=== PATIENT | female | born 1980 | race Caucasian/White ===

== ENCOUNTER 2017-12-18 16:11 | Inpatient (IN) | payer BC ==
[~2017-12-18] VITALS: Ht 157.5 cm; Wt 61.7 kg
[~2017-12-18 16:11] MED LIST: CLC100 PO; FAMO20TA11 PO; FRRS300 PO; MISC-836; MTR600X PO; PRENTAB26 PO; SERT50TA PO
[2017-12-18] MEDS ORDERED: ACETAMINOPHEN 500 MG TAB PO STA (16:35)
[2017-12-18] MEDS ORDERED: SODIUM CHLORIDE 0.9% 1000ML 1,000 ML IV STA (16:35)
--- NOTE | 2017-12-18 16:42 | EMERGENCY ROOM VISIT NOTE ---
History Report prepared by Sugey: Aubree Ortiz Under the Supervision of: Dr. Aurelio Huff M.D. First contact with patient: 16:16 Chief Complaint: FLU LIKE SX Stated Complaint: FLU LIKE SYMPTOMS, JUST DELIVERED 8 DAYS AGO History of Present Illness The patient is a 37 year old white female with a past medical history of vaginal childbirth and D&C for retained placenta 8 days ago who presents to the ED with a cc of constant fever beginning 3 or 4 days ago. She reports she has had a persistent low grade fever of around 100.7F, which is reduced by Tylenol. She also notes difficulty sleeping, headache, low back pain, weakness, and fatigue. The patient notes her last bowel movement was yesterday. She denies any nausea, cough, sore throat, congestion, ear pain. The patient notes this was her third delivery, and she has not felt like this after giving in the past. SHe notes some occasional cramping, and denies any vaginal bleeding. She notes she was seen at the [facility] clinic today, where they called her FACILITY SUPERVISOR who recommended she be seen in the ED for a sonogram and blood work. They noted no concern for breast infections. The patient denies any recent medication changes. Source of History: patient Onset: 3 or 4 days ago Position: head Quality: other (fever) Timing: constant Modifying Factors (Relieving): tylenol Associated Symptoms: + headache, + back pain (low), + fatigue, + weakness, No sorethroat, No cough Note: Associated symptom: difficulty sleeping. Denies: congestion, ear pain Review of Systems See HPI for pertinent positives and negatives. A total of ten systems were reviewed and were otherwise negative. Past Medical & Surgical Medical Problems: (1) fever (2) PROM (premature rupture of membranes) (3) Vaginal delivery Family History No pertinent family history stated. Social History Smoking Status: Never Smoker Smokeless Tobacco Use: No Alcohol Use: occasionally Drug Use: none Marital Status: Housing Status: lives with family Current/Historical Medications Scheduled Ferrous Sulfate (Ferrous Sulfate), 325 MG PO BIDM Multivit/Min/Iron/Fol Ac/Pren ( Vitamin), 1 TAB PO DAILY Sertraline (Zoloft), 1 TAB PO DAILY Scheduled PRN Ibuprofen (Ibuprofen), 600 MG PO Q4H PRN for PAIN, AGUILAR, CRAMPING OR FEVER Durable Medical Equipment Misc. Devices (Breast Pump), EA Allergies Coded Allergies: No Known Allergies (Unverified , 02/07/15) Physical Exam Vital Signs Date Time Temp Pulse Resp B/P (MAP) Pulse Ox O2 Delivery O2 Flow Rate FiO2 12/18/17 18:45 74 129/72 96 Room Air 12/18/17 17:34 68 12/18/17 17:24 99 Room Air 12/18/17 17:24 70 17 132/45 99 Room Air 12/18/17 16:13 36.8 83 17 127/88 98 Room Air Physical Exam GENERAL: Awake, alert, well-appearing, NAD HENT: Normocephalic, atraumatic. EYES: Normal conjunctiva. Sclera non-icteric. PERRL. No anisocoria. NECK: Supple. No nuchal rigidity. FROM. RESPIRATORY: CTAB, no rhonchi, wheezing, crackles CARDIAC: RRR, no MRG ABDOMEN: Soft, NTND, BS+. Negative obturators, negative psoas. MSK: No chest wall TTP, no LE edema. no CVA TTP. NEURO: GCS 15, CN 2-12 intact, moves all 4s on command SKIN: No rash or jaundice noted. Medical Decision & Procedures ER Provider Diagnostic Interpretation: Radiology results as stated below per my review and radiologist interpretation: PELVIC COMPLETE NON OB CLINICAL HISTORY: r/o retained POC, had D C but persistent fever COMPARISON STUDY: None FINDINGS: The uterus measured 13.1 cm. Unremarkable on a post delivery bases.. The endometrial stripe measured 2 cm. Increased vascular flow with heterogeneity.. The right ovary measured not seen. The left ovary measured not seen. There is no ultrasonographic evidence of ovarian torsion. It should be noted that ovarian torsion can be present with normal Doppler ultrasonographic findings. There was no evidence of pathologic free pelvic fluid. IMPRESSION: 1. Enlarged uterus given the patient's postgravid state. 2. Endometrial thickening and hypervascularity at 2 cm. Possibility of hyperplastic change versus endometrial hematoma is considered. 3. No well-defined retained products of conception. The above report was generated using voice recognition software. It may contain grammatical, syntax or spelling errors. Electronically signed by: Ted Wolfe M.D. 12/18/2017 6:28 PM Dictated Date/Time: 12/18/2017 6:26 PM CHEST ONE VIEW PORTABLE CLINICAL HISTORY: Evaluate Fever/Sepsis sepsis COMPARISON STUDY: No previous studies for comparison. FINDINGS: The bones soft tissues and hemidiaphragms are normal. The cardiomediastinal silhouette is normal. The lungs are clear. The pulmonary vasculature is normal. IMPRESSION: Negative chest. The above report was generated using voice recognition software. It may contain grammatical, syntax or spelling errors. Electronically signed by: Ted Wolfe M.D. 12/18/2017 4:51 PM Dictated Date/Time: 12/18/2017 4:51 PM Laboratory Results Test 12/18/17 16:37 12/18/17 16:47 Urine Color YELLOW Urine Appearance CLEAR (CLEAR) Urine pH 6.5 (4.5-7.5) Urine Specific [place] 1.010 (1.000-1.030) Urine Protein NEG (NEG) Urine Glucose (UA) NEG (NEG) Urine Ketones NEG (NEG) Urine Occult Blood NEG (NEG) Urine Nitrite NEG (NEG) Urine Bilirubin NEG (NEG) Urine Urobilinogen NEG (NEG) Urine Leukocyte Esterase MODERATE (NEG) Urine WBC (Auto) 5-10 /hpf (0-5) Urine RBC (Auto) 0-4 /hpf (0-4) Urine Hyaline Casts (Auto) 1-5 /lpf (0-5) Urine Epithelial Cells (Auto) 20-30 /lpf (0-5) Urine Bacteria (Auto) NEG (NEG) Direct Bilirubin < 0.1 mg/dl (0-0.2) Laboratory results reviewed by me Medications Administered Medications (Trade) Dose Ordered Sig/Nereida Route Start Time Stop Time Status Last Admin Dose Admin Acetaminophen (Tylenol Tab) 1,000 mg NOW STAT PO 12/18/17 16:35 12/18/17 16:38 DC 12/18/17 17:18 1,000 MG Sodium Chloride 1,000 ml @ 999 mls/hr Q1H1M STAT IV 12/18/17 16:35 12/18/17 17:35 DC 12/18/17 17:19 999 MLS/HR Acetaminophen (Tylenol Tab) 650 mg Q4H PRN PO 12/18/17 19:15 01/17/18 19:14 12/19/17 07:55 650 MG ED Course 1619: The patient was evaluated in room A11B. A complete history and physical exam was performed. 1839: I discussed the case with Dr. Goodman, FACILITY SUPERVISOR. She will evaluate the patient. 1912: I reviewed the case again Dr. Goodman, FACILITY SUPERVISOR. The patient will be evaluated for further treatment and disposition. 1915: I reevaluated the patient. Discussed results: she verbalized agreement with the treatment plan. the patient will be evaluated for further management. Medical Decision Nursing notes reviewed. Ancillary studies and prior records reviewed. The patient is a 37 year old white female with a past medical history of vaginal childbirth and D&C for retained placenta 8 days ago who presents to the ED with a cc of constant fever beginning 3 or 4 days ago. Etiologies such as viral syndrome, otitis, pharyngitis, pneumonia, influenza, meningitis, urinary tract infection, sepsis, bacteremia, as well as others were entertained. Patient was seen and evaluated the patient side. Patient does complain of just not feeling well. Patient has denied any vaginal bleeding or discharge. The patient has had a low-grade fever of 100.6. Patient denies any infectious symptoms, cough fever chills, upper respiratory symptoms, nausea vomiting or diarrhea. Patient also denies any abdominal cramping. Patient did have blood work completed along with urinalysis, chest x-ray and blood cultures. Patient was given fluids. Patient does have mild white count. The patient does have some anemia which is somewhat chronic. It is down 1 point compared to prior. Patient's chest x-ray is clear. Urinalysis does not appear infected. I did speak with the on-call FACILITY SUPERVISOR physician came to evaluate the patient. She states that the patient then confided in the patient that she has had some foul-smelling discharge. This was confirmed based on her pelvic exam. Patient was admitted to the FACILITY SUPERVISOR service for further evaluation , treatment, and IV antibiotics. Most likely endometritis. Medication Reconcilliation Current Medication List: was personally reviewed by me Blood Pressure Screening Patient's blood pressure: Normal blood pressure Blood pressure disposition: Did not require urgent referral Consults Time Called: 1832 Consulting Physician: Dr. Goodman FACILITY SUPERVISOR Returned Call: 1839 1839: I discussed the case with Dr. Goodman, FACILITY SUPERVISOR. She will evaluate the patient. 1913: I reviewed the case again Dr. Goodman, FACILITY SUPERVISOR. The patient will be evaluated for further treatment and disposition. Impression Primary Impression: Endometritis Additional Impression: Anemia Scribe Attestation The scribe's documentation has been prepared under my direction and personally reviewed by me in its entirety. I confirm that the note above accurately reflects all work, treatment, procedures, and medical decision making performed by me. Departure Information Dispostion Being Evaluated By Surgeon Antoni Tadeo M.D. (PCP) Patient Instructions My [facility] Problem Qualifiers Additional Impression: Anemia Anemia type: unspecified type Qualified Codes: D64.9 - Anemia, unspecified
--- NOTE | 2017-12-18 16:52 | DIAGNOSTIC IMAGING REPORT ---
CHEST ONE VIEW PORTABLE CLINICAL HISTORY: Evaluate Fever/Sepsis sepsis COMPARISON STUDY: No previous studies for comparison. FINDINGS: The bones soft tissues and hemidiaphragms are normal. The cardiomediastinal silhouette is normal. The lungs are clear. The pulmonary vasculature is normal. IMPRESSION: Negative chest. The above report was generated using voice recognition software. It may contain grammatical, syntax or spelling errors. Electronically signed by: Ted Wolfe M.D. 12/18/2017 4:51 PM Dictated Date/Time: 12/18/2017 4:51 PM
[2017-12-18 17:17] LABS: HEMATOCRIT 25.8 % (37-47); HEMOGLOBIN 8.6 g/dL (12.0-16.0); MEAN CELL VOLUME 93.1 fL (80-100); MEAN CORPUSCULAR HGB CONC 33.3 g/dl (32-36); MEAN PLATELET VOLUME 8.6 fL (7.4-10.4); PLATELET COUNT 290 K/uL (130-400); RED CELL DISTRIBUTION WIDTH CV 13.6 % (11.5-14.5); RED CELL DISTRIBUTION WIDTH SD 46.8 fL (36.4-46.3); WHITE BLOOD COUNT 11.85 K/uL (4.8-10.8)
[2017-12-18 17:39] LABS: ALBUMIN 2.9 gm/dl (3.4-5.0); ALKALINE PHOSPHATASE 76 U/L (45-117); ALT/SGPT 13 U/L (12-78); AST/SGOT 11 U/L (15-37); BLOOD UREA NITROGEN 11 mg/dl (7-18); CALCIUM 8.1 mg/dl (8.5-10.1); CARBON DIOXIDE 25 mmol/L (21-32); CREATININE 0.73 mg/dl (0.60-1.20); GLUCOSE 79 mg/dl (70-99); POTASSIUM 3.5 mmol/L (3.5-5.1); SODIUM 139 mmol/L (136-145); TOTAL PROTEIN 6.6 gm/dl (6.4-8.2)
[2017-12-18 18:03] LABS: BASO % 0.3 %; BASO ABS # 0.03 K/uL (0-0.2); EOS % 0.7 %; EOS ABS # 0.08 K/uL (0-0.5); IG# 0.08 K/uL (0.00-0.02); LYMPH ABS # 1.78 K/uL (1.2-3.4); MONO % 7.8 %; MONO ABS # 0.93 K/uL (0.11-0.59); NEUT % 75.5 %; NEUT ABS # 8.95 K/uL (1.4-6.5)
--- NOTE | 2017-12-18 18:29 | DIAGNOSTIC IMAGING REPORT ---
PELVIC COMPLETE NON OB CLINICAL HISTORY: r/o retained POC, had D C but persistent fever COMPARISON STUDY: None FINDINGS: The uterus measured 13.1 cm. Unremarkable on a post delivery bases.. The endometrial stripe measured 2 cm. Increased vascular flow with heterogeneity.. The right ovary measured not seen. The left ovary measured not seen. There is no ultrasonographic evidence of ovarian torsion. It should be noted that ovarian torsion can be present with normal Doppler ultrasonographic findings. There was no evidence of pathologic free pelvic fluid. IMPRESSION: 1. Enlarged uterus given the patient's postgravid state. 2. Endometrial thickening and hypervascularity at 2 cm. Possibility of hyperplastic change versus endometrial hematoma is considered. 3. No well-defined retained products of conception. The above report was generated using voice recognition software. It may contain grammatical, syntax or spelling errors. Electronically signed by: Ted Wolfe M.D. 12/18/2017 6:28 PM Dictated Date/Time: 12/18/2017 6:26 PM
[2017-12-18] MEDS ORDERED: LOPERAMIDE HCL 2 MG CAP PO PRN (19:15)
[2017-12-18] MEDS ORDERED: POLYETHYLENE (MIRALAX) 17 GM PACK PO PRN (19:15)
[2017-12-18] MEDS ORDERED: MAGNESIUM HYDROXIDE SUSP 30 ML UDC PO PRN (19:15)
[2017-12-18] MEDS ORDERED: GENTAMICIN CONSULT ACTIVE PRN (19:15)
--- NOTE | 2017-12-18 20:19 | HISTORY & PHYSICAL EXAMINATION ---
DATE OF ADMISSION: 12/18/2017 CHIEF COMPLAINT: fever and foul smelling discharge. HISTORY OF PRESENT ILLNESS: The patient is a 37-year-old G3-P3-0-0-3 who is status post spontaneous vaginal delivery on 12/10/2017, which was complicated by hemorrhage, retained placenta which required D&C under ultrasound guidance on the same day. She recovered well and discharged home on day #2 on 12/12/2017. She was doing well for 2 days and then she started to have low grade fevers on 12/14/2017. Her temperature has been between 100.5-100.6 at home. She called the office and recommended to watch for it and use Tylenol and/or Motrin. Yesterday, her temperature was 100.2 after she came from an outside pool, where she took her 3 and 5-year-old kids and it was hot outside. Then she felt well later last night until today. She was having chills/ shakes and took her temperature again and it was again 102.0 and she called her primary care. She took 600 mg of Motrin after that reading. She went to see Dr. Tao at [facility] office. Her temperature was 100.6 [address] office and Dr. Tao to call me and I recommended to come into the ER for evaluation. Upon coming to the ER, she was given 1000 mg of Tylenol and her temperature was 36.8 Celsius. She also complains of flu-like symptoms like achiness in her body, abdomen, and legs and breast tenderness. She denies runny or stuffy nose, cough, sore throat either. She started to notice foul-smelling yellow discharge today. She did not have that before. She had minimal vaginal bleeding until today. She feels tired overall and has been waking up with night sweats as well. She denies nausea, vomiting, or problem with urination or bowel movements. She has been tolerating regular diet with a normal appetite. She feels anxious about this and she states she needs to feel well to take of 3 young kids. PAST MEDICAL HISTORY: She denies any medical problems. She has a history depression. She is on Zoloft. PAST SURGICAL HISTORY: None. MEDICATIONS: vitamins, iron sulfate, and Zoloft 50 mg daily, 600 mg of ibuprofen and Tylenol as needed for pain or fever. ALLERGIES: No known drug allergies. SOCIAL HISTORY: The patient denies smoking, alcohol or drug use. She is a teacher. She lives with her and her kids. GYNECOLOGIC HISTORY: The patient has history of full-term spontaneous vaginal deliveries 5 years and 3 years ago and the last one was 8 days ago as above. PHYSICAL EXAMINATION: GENERAL: The patient is alert, oriented x3, not in acute distress. She looks tired and pale. VITAL SIGNS: Her blood pressure is 129/72, temperature is 36.8. CARDIOVASCULAR SYSTEM: S1, S2, RRR. LUNGS: Clear to auscultation bilaterally. ABDOMEN: Soft, nontender, nondistended. Bowel sounds present. PELVIC: Her perineum is covered with yellow foul smelling discharge. Odor disseminated through the room. Speculum exam shows well healing labial repair and similar yellow foul-smelling discharge in the upper vagina and no bleeding from cervical os. Cultures were obtained . Bimanual exam shows an enlarged uterus, nonpalpable adnexa. Blood work: Her white count is 11.850. H and H is 8.6/25.8, platelets 219. Chemistry including liver enzymes, electrolytes are normal. Urine has leukocyte esterase positive and white blood cell positive and urine blood culture is pending. Chest x-ray showed normal results and a pelvic ultrasound showed enlarged uterus at 13 cm. Endometrial stripe 2 cm, possibly hyperplastic changes versus endometrial blood hematoma. No well-defined retained products of conception. ASSESSMENT AND PLAN: The patient is a 37-year-old G3-P3-0-0-3 status post spontaneous vaginal delivery, curettage for retained placenta day #8, fever for the last 4 days. No other identifiable etiology was found. Most likely, endometritis given the history of dilation and curettage as well as foul-smelling discharge. Discussed the findings and recommended admission for IV antibiotics for 48 hours. The patient understands and agrees with the plan. Plan: Admit her to gynecology service, start on IV ampicillin, clindamycin, gentamicin for 48 hours and then discharged with oral antibiotic. Start iron, stool softeners, and sertraline. All questions were answered. RANDI
[2017-12-18] MEDS: GENTAMICIN INJ 280 MG in DEXTROSE 5% 100ML 100 ML IV SCH (21:01)
[2017-12-18] MEDS: ACETAMINOPHEN 325 MG TAB PO PRN (21:11)
[2017-12-18 22:05] VITALS: BP 109/62; PULSE 81; TEMP 36.8; O2SAT 97; Ht 157.5 cm; Wt 61.7 kg
[2017-12-18] MEDS: LACTATED RINGER'S 1000ML 1,000 ML IV SCH (23:04)
[2017-12-18] MEDS: CLINDAMYCIN IV 600 MG in DEXTROSE 5% 50ML 50 ML IV SCH (23:05)
[2017-12-18] MEDS: FERROUS SULFATE 325 MG TAB PO SCH (23:15)
[2017-12-18] MEDS: SERTRALINE HCL 50 MG TAB PO SCH (23:28)
[2017-12-19] VITALS (10 sets, daily range): BP systolic 108–160; BP diastolic 72–95; PULSE 61–79; TEMP 36.3–37; O2SAT 97–99
[2017-12-19] MEDS: AMPICILLIN IV 1 GM in SODIUM CHLOR 0.9% AD-VAN 50ML 50 ML IV SCH ×5 (00:22→23:56)
[2017-12-19] MEDS ORDERED: NURSING VERBAL MED ORDER ONE ×2 (00:45)
[2017-12-19] MEDS: IBUPROFEN 600 MG TAB PO PRN ×2 (00:48→16:42)
[2017-12-19 06:06] LABS: BASO % 0.3 %; BASO ABS # 0.03 K/uL (0-0.2); HEMATOCRIT 25.4 % (37-47); HEMOGLOBIN 8.3 g/dL (12.0-16.0); IG# 0.08 K/uL (0.00-0.02); LYMPH % 19.8 %; LYMPH ABS # 1.97 K/uL (1.2-3.4); MEAN CORPUSCULAR HEMOGLOBIN 30.4 pg (25-34); MEAN CORPUSCULAR HGB CONC 32.7 g/dl (32-36); MEAN PLATELET VOLUME 8.7 fL (7.4-10.4); MONO % 8.1 %; MONO ABS # 0.81 K/uL (0.11-0.59); NEUT ABS # 6.96 K/uL (1.4-6.5); PLATELET COUNT 256 K/uL (130-400); RED CELL DISTRIBUTION WIDTH SD 47.1 fL (36.4-46.3); WHITE BLOOD COUNT 9.95 K/uL (4.8-10.8)
--- NOTE | 2017-12-19 06:36 | OB/GYN Progress Note ---
[employer] Progress Note Date of Service: Dec 19, 2017. Patient is seen and examined She feels much better, no more fever or chills No VB/ D/C No abdominal pain Breast feeding her baby Date Time Temp Pulse Resp B/P (MAP) Pulse Ox O2 Delivery O2 Flow Rate FiO2 12/19/17 04:35 36.6 71 18 117/74 (88) 97 Room Air 12/19/17 00:10 36.7 78 18 108/72 (84) 97 Room Air 12/18/17 22:05 36.8 81 20 109/62 (78) 97 Room Air 12/18/17 22:05 36.8 81 20 109/62 97 Room Air 12/18/17 22:05 97 Room Air 12/18/17 22:00 84 111/72 97 12/18/17 21:05 84 111/72 97 Room Air 12/18/17 18:45 74 129/72 96 Room Air 12/18/17 17:34 68 12/18/17 17:24 99 Room Air 12/18/17 17:24 70 17 132/45 99 Room Air 12/18/17 16:13 36.8 83 17 127/88 98 Room Air Last 24 Hours Test 12/18/17 16:37 12/18/17 16:47 12/19/17 05:43 Urine Color YELLOW Urine Appearance CLEAR Urine pH 6.5 Urine Specific [place] 1.010 Urine Protein NEG Urine Glucose (UA) NEG Urine Ketones NEG Urine Occult Blood NEG Urine Nitrite NEG Urine Bilirubin NEG Urine Urobilinogen NEG Urine Leukocyte Esterase MODERATE Urine WBC (Auto) 5-10 /hpf Urine RBC (Auto) 0-4 /hpf Urine Hyaline Casts (Auto) 1-5 /lpf Urine Epithelial Cells (Auto) 20-30 /lpf Urine Bacteria (Auto) NEG White Blood Count 11.85 K/uL 9.95 K/uL Red Blood Count 2.77 M/uL 2.73 M/uL Hemoglobin 8.6 g/dL 8.3 g/dL Hematocrit 25.8 % 25.4 % Mean Corpuscular Volume 93.1 fL 93.0 fL Mean Corpuscular Hemoglobin 31.0 pg 30.4 pg Mean Corpuscular Hemoglobin Concent 33.3 g/dl 32.7 g/dl Platelet Count 290 K/uL 256 K/uL Mean Platelet Volume 8.6 fL 8.7 fL Neutrophils (%) (Auto) 75.5 % 70.0 % Lymphocytes (%) (Auto) 15.0 % 19.8 % Monocytes (%) (Auto) 7.8 % 8.1 % Eosinophils (%) (Auto) 0.7 % 1.0 % Basophils (%) (Auto) 0.3 % 0.3 % Neutrophils # (Auto) 8.95 K/uL 6.96 K/uL Lymphocytes # (Auto) 1.78 K/uL 1.97 K/uL Monocytes # (Auto) 0.93 K/uL 0.81 K/uL Eosinophils # (Auto) 0.08 K/uL 0.10 K/uL Basophils # (Auto) 0.03 K/uL 0.03 K/uL RDW Standard Deviation 46.8 fL 47.1 fL RDW Coefficient of Variation 13.6 % 14.0 % Immature Granulocyte % (Auto) 0.7 % 0.8 % Immature Granulocyte # (Auto) 0.08 K/uL 0.08 K/uL Red Blood Cell Morphology Unremarkable Sodium Level 139 mmol/L Potassium Level 3.5 mmol/L Chloride Level 106 mmol/L Carbon Dioxide Level 25 mmol/L Anion Gap 8.0 mmol/L Blood Urea Nitrogen 11 mg/dl Creatinine 0.73 mg/dl Est Creatinine Clear Calc Drug Dose 93.0 ml/min Estimated GFR () 123.7 Estimated GFR (Non- 106.7 BUN/Creatinine Ratio 14.7 Random Glucose 79 mg/dl Calcium Level 8.1 mg/dl Total Bilirubin 0.2 mg/dl Direct Bilirubin < 0.1 mg/dl Aspartate Amino Transf (AST/SGOT) 11 U/L Alanine Aminotransferase (ALT/SGPT) 13 U/L Alkaline Phosphatase 76 U/L Total Protein 6.6 gm/dl Albumin 2.9 gm/dl Abd: soft, NT Perineum dry, no bleeding nor d/c AP: 37 yo female s/p , pp curettage for retained placenta on 12/10, admitted for postparetum endometritis last night, on triple AB, Amp, Gent, clindamycin VSS Afebrile doing well Continue to monitor Anticipate d/c tomorrow
[2017-12-19 06:41] LABS: ALBUMIN 2.3 gm/dl (3.4-5.0); CALCIUM 7.6 mg/dl (8.5-10.1); CREATININE 0.62 mg/dl (0.60-1.20); POTASSIUM 3.6 mmol/L (3.5-5.1); TOTAL PROTEIN 5.5 gm/dl (6.4-8.2)
[2017-12-19] MEDS: CLINDAMYCIN IV 600 MG in DEXTROSE 5% 50ML 50 ML IV SCH ×3 (06:45→23:17)
[2017-12-19] MEDS: ACETAMINOPHEN 325 MG TAB PO PRN (07:55)
[2017-12-19] MEDS: FERROUS SULFATE 325 MG TAB PO SCH ×2 (07:55→17:34)
[2017-12-19] MEDS: DOCUSATE SODIUM 100 MG CAP PO SCH ×3 (07:55→20:00)
[2017-12-19] MEDS: PRENATAL VITAMIN TAB PO SCH (07:55)
[2017-12-19] MEDS: LACTATED RINGER'S 1000ML 1,000 ML IV SCH (11:36)
[2017-12-19] MEDS: GENTAMICIN INJ 280 MG in DEXTROSE 5% 100ML 100 ML IV SCH (19:58)
[2017-12-19] MEDS: SERTRALINE HCL 50 MG TAB PO SCH (19:58)
[2017-12-20] MEDS: LACTATED RINGER'S 1000ML 1,000 ML IV SCH ×2 (00:28→07:58)
[2017-12-20 05:17] LABS: BASO % 0.5 %; BASO ABS # 0.04 K/uL (0-0.2); EOS % 1.5 %; EOS ABS # 0.13 K/uL (0-0.5); HEMATOCRIT 26.7 % (37-47); HEMOGLOBIN 8.9 g/dL (12.0-16.0); IG# 0.11 K/uL (0.00-0.02); LYMPH % 20.5 %; LYMPH ABS # 1.75 K/uL (1.2-3.4); MEAN CELL VOLUME 92.4 fL (80-100); MEAN CORPUSCULAR HEMOGLOBIN 30.8 pg (25-34); MEAN CORPUSCULAR HGB CONC 33.3 g/dl (32-36); MEAN PLATELET VOLUME 8.6 fL (7.4-10.4); MONO % 7.7 %; MONO ABS # 0.66 K/uL (0.11-0.59); NEUT % 68.5 %; NEUT ABS # 5.85 K/uL (1.4-6.5); PLATELET COUNT 265 K/uL (130-400); RED CELL DISTRIBUTION WIDTH CV 13.6 % (11.5-14.5); RED CELL DISTRIBUTION WIDTH SD 45.6 fL (36.4-46.3); WHITE BLOOD COUNT 8.54 K/uL (4.8-10.8)
[2017-12-20] MEDS: AMPICILLIN IV 1 GM in SODIUM CHLOR 0.9% AD-VAN 50ML 50 ML IV SCH ×3 (05:58→17:36)
[2017-12-20] MEDS: CLINDAMYCIN IV 600 MG in DEXTROSE 5% 50ML 50 ML IV SCH ×2 (06:49→14:21)
[2017-12-20 07:50] VITALS: BP 145/88; PULSE 73; TEMP 36.8; O2SAT 98
[2017-12-20] MEDS: IBUPROFEN 600 MG TAB PO PRN (07:59)
[2017-12-20] MEDS: FERROUS SULFATE 325 MG TAB PO SCH ×2 (08:02→17:35)
[2017-12-20] MEDS: DOCUSATE SODIUM 100 MG CAP PO SCH (08:02)
[2017-12-20] MEDS: PRENATAL VITAMIN TAB PO SCH (08:02)
[2017-12-20 11:36] VITALS: BP 132/90; PULSE 67; TEMP 36.5; O2SAT 98
--- NOTE | 2017-12-20 11:55 | OB/GYN Progress Note ---
HEALTH MANAGEMENT CONSULTANT Progress Note Date of Service: Dec 20, 2017. Patient is seen and examined She feels much better, no more fever or chills No VB/ D/C No abdominal pain Breast feeding her baby Date Time Temp Pulse Resp B/P (MAP) Pulse Ox O2 Delivery O2 Flow Rate FiO2 12/20/17 11:36 36.5 67 18 132/90 (104) 98 Room Air 12/20/17 07:50 36.8 73 18 145/88 (107) 98 Room Air 12/20/17 07:50 98 Room Air 12/19/17 23:55 36.3 61 16 147/92 (110) 12/19/17 23:55 Room Air 12/19/17 21:45 36.8 70 16 148/95 (112) 12/19/17 19:40 37.0 73 16 142/88 (106) 99 Room Air 12/19/17 19:40 Room Air 12/19/17 17:30 71 18 147/88 (107) 12/19/17 16:00 70 160/93 (115) Room Air 12/19/17 15:20 37.0 79 18 145/90 (108) 98 Room Air 12/19/17 15:20 98 Room Air Test 12/10/17 15:00 12/18/17 16:37 12/18/17 16:47 12/19/17 05:43 Prothrombin Time 10.1 Prothrombin Time INR 1.0 PTT 27.3 Partial Thromboplastin Ratio 1.1 Urine Color YELLOW Urine Appearance CLEAR Urine pH 6.5 Urine Specific [place] 1.010 Urine Protein NEG Urine Glucose (UA) NEG Urine Ketones NEG Urine Occult Blood NEG Urine Nitrite NEG Urine Bilirubin NEG Urine Urobilinogen NEG Urine Leukocyte Esterase MODERATE H Urine WBC (Auto) 5-10 H Urine RBC (Auto) 0-4 Urine Hyaline Casts (Auto) 1-5 Urine Epithelial Cells (Auto) 20-30 H Urine Bacteria (Auto) NEG White Blood Count 11.85 H 9.95 Red Blood Count 2.77 L 2.73 L Hemoglobin 8.6 L 8.3 L Hematocrit 25.8 L 25.4 L Mean Corpuscular Volume 93.1 93.0 Mean Corpuscular Hemoglobin 31.0 30.4 Mean Corpuscular Hemoglobin Concent 33.3 32.7 Platelet Count 290 256 Mean Platelet Volume 8.6 8.7 Neutrophils (%) (Auto) 75.5 70.0 Lymphocytes (%) (Auto) 15.0 19.8 Monocytes (%) (Auto) 7.8 8.1 Eosinophils (%) (Auto) 0.7 1.0 Basophils (%) (Auto) 0.3 0.3 Neutrophils # (Auto) 8.95 H 6.96 H Lymphocytes # (Auto) 1.78 1.97 Monocytes # (Auto) 0.93 H 0.81 H Eosinophils # (Auto) 0.08 0.10 Basophils # (Auto) 0.03 0.03 RDW Standard Deviation 46.8 H 47.1 H RDW Coefficient of Variation 13.6 14.0 Immature Granulocyte % (Auto) 0.7 0.8 Immature Granulocyte # (Auto) 0.08 H 0.08 H Red Blood Cell Morphology Unremarkable Unremarkable Sodium Level 139 141 Potassium Level 3.5 3.6 Chloride Level 106 110 H Carbon Dioxide Level 25 22 Anion Gap 8.0 9.0 Blood Urea Nitrogen 11 9 Creatinine 0.73 0.62 Est Creatinine Clear Calc Drug Dose 93.0 109.5 Estimated GFR () 123.7 135.4 Estimated GFR (Non- 106.7 116.8 BUN/Creatinine Ratio 14.7 14.7 Random Glucose 79 84 Calcium Level 8.1 L 7.6 L Total Bilirubin 0.2 0.2 Direct Bilirubin < 0.1 Aspartate Amino Transferase (AST) 11 L 7 L Alanine Aminotransferase (ALT) 13 11 L Alkaline Phosphatase 76 67 Total Protein 6.6 5.5 L Albumin 2.9 L 2.3 L Globulin 3.2 Albumin/Globulin Ratio 0.7 L Test 12/20/17 05:03 White Blood Count 8.54 Red Blood Count 2.89 L Hemoglobin 8.9 L Hematocrit 26.7 L Mean Corpuscular Volume 92.4 Mean Corpuscular Hemoglobin 30.8 Mean Corpuscular Hemoglobin Concent 33.3 Platelet Count 265 Mean Platelet Volume 8.6 Neutrophils (%) (Auto) 68.5 Lymphocytes (%) (Auto) 20.5 Monocytes (%) (Auto) 7.7 Eosinophils (%) (Auto) 1.5 Basophils (%) (Auto) 0.5 Neutrophils # (Auto) 5.85 Lymphocytes # (Auto) 1.75 Monocytes # (Auto) 0.66 H Eosinophils # (Auto) 0.13 Basophils # (Auto) 0.04 RDW Standard Deviation 45.6 RDW Coefficient of Variation 13.6 Immature Granulocyte % (Auto) 1.3 Immature Granulocyte # (Auto) 0.11 H Red Blood Cell Morphology Unremarkable PE: She is alert oriented, NAD Abd: soft, NT, ND No lochia, no VB no d/c, no odor AP: 37 yo s/p , curettage for retained placenta on 12/10, admitted for endometritis on 12/18 VSS Afebrile doing well Will complete 48 hours of IV AB today and d/c after dinner All questions were answered f/u in a week
[2017-12-20] MEDS ORDERED: CLC/300 PO (11:59)
[2017-12-20] MEDS ORDERED: CLC100 PO (11:59)
[2017-12-20] MEDS ORDERED: AMOX875T PO (11:59)
--- NOTE | 2017-12-20 12:00 | Discharge Instructions ---
Discharge Instructions Date of Service Dec 20, 2017. Admission Reason for Admission: Fever Discharge Discharge Diagnosis / Problem: endometritis Discharge Goals Goal(s): Continuing [employer] care Medications Continue Dispensed Medications: lansinoh Activity Recommendations Activity Limitations: as noted below ACTIVITY RECOMMENDATIONS: * Gradual return to full activity over the next 2-3 weeks. * No lifting - nothing heavier than baby over the next 2-3 weeks. * Do not engage in vigorous exercise, sexual activity or sports until cleared by your physician. * Do not drive or operate any motorized equipment until cleared by your physician. * You may shower/bathe daily. BREAST CARE: If you are not breast feeding: * Wear a supportive bra 24 hours a day for one to two weeks. * Avoid stimulating your breasts and nipples as much as possible during the first few weeks after delivery. * When taking a shower, have the warm water hit your back, not breasts. * When your breasts feel full, apply ice packs. Usually three to four times a day helps ease the discomfort. * Take a mild pain medication (Tylenol/Motrin) when you are uncomfortable. If breast feeding: * Use breast milk to lubricate nipples. Lansinoh cream may be used for sore nipples. You do not need to remove cream prior to breast feeding. If using a different brand of cream, check the label for directions regarding removal of cream prior to nursing. * Wear a supportive bra. * If having problems with breasts or breast feeding, call a [employer] consultant or your health care provider. EPISIOTOMY CARE: After delivery, if you have an episiotomy (stitches), the following steps will ease discomfort and aid healing. * For the first 24 hours after delivery, place ice packs next to your episiotomy to help reduce swelling. * After the first 24 hour-period, sitz baths, either portable or in the tub, are suggested. A shower with a shower arm sprayed over the episiotomy may be comforting. * Kell care should be done after each voiding and bowel movement. Squirt warm water from a plastic bottle over the perineum (region of the body between the anus and urinary opening) and pat dry. * Use Dermoplast to ease discomfort. Shake container. [place] directly over the episiotomy. * Place a Tucks on a clean sanitary pad next to your episiotomy. OVER THE COUNTER MEDICATION: * For discomfort or pain, you may use Acetaminophen (Tylenol), Ibuprofen (Advil ), or Naproxen (Aleve) following the package directions. * For constipation you may use Colace following the package directions. SPECIAL CARE INSTRUCTIONS: When you are discharged from the hospital, it is important for you to follow the instructions listed below: * During the first week at home, you should be able to care for yourself and your baby. In addition, the usual light household activities are encouraged. * Limit your activities to the way you feel. Do not try to clean the house or move furniture. Be sensible. * If you actively engage in sports and have done so up until the time of your delivery, you may resume these activities as soon as you feel able. This may take up to one month or even longer. Use good judgment. * Continue to take your vitamins for at least six weeks after the of your baby. * Your diet need not be limited unless you were on a special diet before your delivery. Breast-feeding mothers need around 2500 calories per day and at least 64-80 ounces of fluid per day (8 to 10 glasses). * You should eat foods from the four major food groups. Crash diets or fad diets are to be avoided. Eating lean meats, fresh fruits and vegetables, low-fat dairy products, high fiber foods and a regular exercise program, will help you get back to your pre- weight without putting your health at risk. * Constipation is sometimes a problem after delivery. Take a mild laxative as needed. If breast feeding, Milk of Magnesia is acceptable to use. You may use a suppository or Fleets enema if no episiotomy. * A daily shower or tub bath is suggested. Be sure to thoroughly and gently dry the perineum. * A bloody vaginal discharge will usually continue until around four weeks post . A small amount of bleeding may continue for as long as six weeks. Vaginal discharge changes from the bright red bleeding after delivery to pink then brownish and finally yellowish-pink before becoming white and disappearing. * Bleeding may increase with activity. Your first period may come in 4-8 weeks. If you are breast feeding, your period may be delayed even longer. * [place] (sex) can begin whenever both you and your partner feel comfortable and do not have any form of genital infection. It is recommended that you wait until after your return appointment and discuss with your physician. If you have questions, please talk to your health care practitioner. A condom should be used to prevent infection and . * Foreplay, gentle intercourse and lubrication is very important the first several times to prevent pain. A water-based lubricant such as K-Y jelly or Astroglide may be used. * Tampons may be used six weeks after delivery. * Douching should be avoided for 6 weeks after delivery. * If you have RH negative blood and your baby is RH positive, you will receive RHOGAM by injection prior to discharge. The nurse will give you a card to keep with you that has the date and place that you received RHOGAM after delivery. * During your care, you had a Rubella screen done to check for the presence of rubella antibodies in your blood. If your test was negative, you will receive a Rubella vaccine prior to discharge. This vaccine may cause a fever, soreness at the injection site and flu-like symptoms. If these symptoms persist, notify your health care practitioner. is not advised for three months after a Rubella vaccine. There is a higher chance of having a baby with defects if conceived within three months of getting the vaccine. * If you were discharged 24 hours from delivery or before 48 hours: Visiting nurses will come to your home 48 hours after discharge to assess you and your baby. The visiting nurse will meet with you while you are in the hospital to arrange a time and get directions to your home. * Verbalizes understanding of car seat law as reviewed with patient nursing. * Car Seat hand-out given and reviewed with patient by nursing. * Shaken baby information reviewed with patient by nursing. Call you doctor if: * Heavy bleeding (saturating several pads an hour) or passing clots the size of your fist. * A fever >101 degrees F (38.3 degrees C) on two occasions four hours apart and/or chills. * Unusual pain in the pelvic or vaginal areas. * "Baby Blues" lasting longer than two weeks. If you have any questions or concerns, call your health care practitioner at . FOLLOW-UP VISIT: * Please call the office at to schedule a 6 week examination. It is important you keep this appointment. * It is important for you to make arrangements for either yearly or twice yearly check-ups thereafter. . Current Hospital Diet Patient's current hospital diet: Regular OB Diet Discharge Diet Recommended Diet: Regular Diet Pending Studies Studies pending at discharge: no Medical Emergencies . Who to Call and When: Medical Emergencies: If at any time you feel your situation is an emergency, please call 911 immediately. . Non-Emergent Contact Non-Emergency issues call your: Tank Builder, Specialist Call Non-Emergent contact if: temperature is above 100.5, your pain is not controlled, your pain is worsening, wound has increased drainage, wound has increased redness, you have any medication questions . . "Provider Documentation" section prepared by Fred Goodman. .
[2017-12-20 16:05] VITALS: BP 129/90; PULSE 62; TEMP 36.3; O2SAT 98
== END 2017-12-20 18:15 | disposition home or self-care (01) | DRG 776 ==
LOC: C.EDB 16:12 → C.MS4N 19:17 → ENRESERV 20:50
PROVIDERS: ADMIT Obstetrics & Gynecology; ATTEND Obstetrics & Gynecology
DX: O86.12 Endometritis following delivery (principal); Z79.899 Other long term (current) drug therapy